=== PATIENT | female | born 1945 | race Caucasian/White ===

== ENCOUNTER → 2016-11-03 | Outpatient (CLI) | payer OTHER, MEDICARE ==
[~2016-11-03] VITALS: Ht 167.6 cm; Wt 76.4 kg
[2016-11-03 15:46] VITALS: BP 130/74; PULSE 78; Ht 167.6 cm; Wt 76.4 kg
== END | disposition home or self-care (01) ==
LOC: C.NEUR 14:02
PROVIDERS: ATTEND Physician Assistant
DX: G47.33 Obstructive sleep apnea (adult) (pediatric) (principal)

== ENCOUNTER → 2017-02-11 | Outpatient (CLI) | payer OTHER, MEDICARE ==
--- NOTE | 2017-02-12 05:37 | PAP/PSG TECHNICIAN REPORT ---
[facility] Wringer Machine Operator Polysomnogram Report Study name: None Report date: 02/12/2017 Study date: 02/11/2017 Referring Physician: Miriam June PA-C, PA-C Name: BOBBY SAMSON Interpreting Physician: Patricio Levi M.D. Date of : 1945 Wringer Machine Operator: ELIUD Alvarez. Sex: Female Age: 71 StudyType: PSG Weight: 168.5 lbs Height: 71 years, Height 5' 6" Neck Circum:14.75inches BMI: 27.19 Medications: Acsensia Breeze, ASA 81mg, CoQ10 50mg, Crestor 20mg, Advil 200mg, Levothyroxine 75mg, Lisinopril 5mg, Metformin HCl 500mg, Multi Vitamin, Venlafaxine HCl 75mg, V-R Vitamin C500mg Patient History Study started on room air with 4cwp cpap in room #7. 71yr old female here tonight for a titration study. She has been using cpap for about 12 years and has been having increased nocturnal awakenings. She was diagnosed with severe PATTIE when living in [place]. She thinks that she is on a setting of 7cwp. Her neck circ=14.75inches She did have to be moved to a different room after getting into bed because of amplifier problems in room #6([facility] was called). She was moved to room #7 and was very gracious about the whole ordeal. Parameters Monitored NPSG: E1-M2, E2-M1, Fp1-M2, Fp2-M1, F3-M2, F4-M2, F4-M1, C3-M2, C4-M2, C4-M1, O1-M2, O2-M2, O2-M1, T3-M2, T4-M1, P3-M2, P4-M1, CHIN1, CHIN2, HR, EKG, Legs, PFLOW, SNOR, FLOW, CFLOW, Tidal Volume, THOR, ABDO, SpO2, PLTH, CPRESS, ETCO2 Wave, ETCO2, pH Sleep Architecture Sleep Stages Time at Lights Off 10:48:12 PM STAGES Time (min.) TST (%) Time at Lights On 5:31:12 AM Wake 70.5 -- Total Recording Time (TRT) 403.00 min. N1 36.5 11 Total Sleep Period (TSP) 400.0 min. N2 242.0 73 Total Sleep Time (TST) 332.5min. N3 21.0 6 Awake Time 70.5 min. REM 33.0 10 Wake after Sleep Onset 67.5 min. Sleep Efficiency (SE) 83 % Sleep Onset Latency (CAROLINE) 3.0 min. Number of Stage 1 Shifts None Awakenings 21 Stage Changes 124 Number of REM periods 1 REM 33.0 10 REM Latency 228.0 min. NREM 299.5 90 Body Position Analysis Supine Right Left Side Prone Vertical Total Sleep Time (min.) 368.5 18.3 0.0 18.29 0.0 0.0 Total Sleep Time (%) 94% 6% 0% 6 0% N/A% Total Sleep Time REM (min.) 33.0 0.0 0.0 None 0.0 0.0 Total Sleep Time NREM (min.) 281.2 18.3 0.0 None 0.0 0.0 Intermittent Wake (min.) 54.2 16.0 0.0 None 0.0 0.0 Total Sleep Period (%) 91% None None None None None Arousals Myoclonus (PLM) * Events Count Index Events Count Index Spontaneous 13 2 Events Awake (PLMW) 68 57.9 Respiratory 2 0.4 Events Asleep w/ Arousal (PLMA) 66 11.9 PLM 64 12 Events Asleep w/o Arousal (PLMS) 267 48.2 Snoring 3 1 Total Asleep 333 60.1 Total 82 15 Total 401 60 Respiratory Analysis * CA OA MA CH H RERA Total Count 0 0 0 0 4 0 4 Index 0.0 0.0 0.0 0 0.7 0 0.7 Mean Duration 0.0 0.0 0.0 0.00 24.7 0.0 24.7 Longest Duration 0.0 0.0 0.0 0.00 0.0 0.0 29.2 Respiratory Event Summary Total Supine ~Supine Right Left Prone REM NREM Apneas Count 0 0 0 0 N/A N/A 0 0 Index 0.0 0 0 0.0 N/A N/A 0 0 Hypopneas (4% Desat) Count 4 4 0 0 N/A N/A 2 2 Index 0.7 0.8 0 0.0 N/A N/A 3.6 0.4 Apneas & All Hypopneas Count 4 4 0 0 N/A N/A 2 2 Index 0.7 1 0 0 N/A N/A 3.6 0.4 Respiratory Events (Cell Coverer+All Hyp+RERA) Count 4 4 0 0 N/A N/A 2 2 Index 0.7 1 0 0.0 N/A N/A 3.6 0.4 Respiratory Related Arousal Count 2 4 0 0 N/A N/A 0 2 Index 0.4 0 0 0 N/A N/A 0 0 Snoring Analysis Supine Right Left Prone REM NREM Total Snore duration 4.0 min Snores count 140 17 N/A N/A 4 153 157 Snore mean duration 1.5 Sec Snores index 27 56 N/A N/A 7.3 30.7 28.3 TST with snoring (%) 1.2% Desaturation Event Summary: Minimum %SpO2 Event Count Mean/Min/Max Duration(sec.) Desaturation Index % Time In Bed > 90 9 23.4 / 10.5 / 43.0 1.5 92.2 86 - 90 1 20.3 / 20.3 / 20.3 1.9 7.8 81 - 85 0 N/A 0.0 0.0 76 - 80 0 N/A 0.0 0.0 71 - 75 0 N/A 0.0 0.0 66 - 70 0 N/A 0.0 0.0 61 - 65 0 N/A 0.0 0.0 56 - 60 0 N/A 0.0 0.0 51 - 55 0 N/A 0.0 0.0 < 50 0 N/A 0.0 0.0 Total REM NREM Awake <50% 0.0 min. 0.0 min. 0.0 min. 0.0 min. 51 - 60% 0.0 min. 0.0 min. 0.0 min. 0.0 min. 61 - 70% 0.0 min. 0.0 min. 0.0 min. 0.0 min. 71 - 80% 0.0 min. 0.0 min. 0.0 min. 0.0 min. 81 - 90% 31.5 min. 0.0 min. 25.6 min. 5.9 min. 91 - 100% 371.3 min. 33.0 min. 273.9 min. 64.3 min. Average 92 94 92 92 Minimum SpO2 87 91 87 90 Desaturation Event Index 1.5 3.6 1.0 2.6 # Desat. Events below 89% 1 N/A 1 N/A Time(%) with Saturation below 89% 0.1 0.0 0.1 0.0 Time(min.) with Saturation below 89% 0.3 0.0 0.3 0.0 Time (mins) REM (mins) NREM (mins) % of TST SpO2 Below 90% 5 N/A N5 0.4 SpO2 Below 88% 0 0 0 0 Heart Rate Analysis Min (bpm) Max (bpm) Average (bpm) Awake 58 94 68 NREM 57 81 64 REM 59 70 63 Overall 57 81 64 Supplemental O2 Values Minimum O2 level: None Value Start Time End Time Wringer Machine Operator Comments Mrs. Samson slept in the right and supine positions. No cardiac arrhythmia noted. PLM's were noted. No bruxism noted. CPAP was initiated at +4 CMH2O and up-titrated to an optimal level of +6 CMH2O, which nearly eliminated all respiratory events and snoring. She brought her own nasal pillow system to use during titration. She did not use the restroom during the night. She stated that she slept about the sane as usual. The final report will be interpreted and signed by a sleep physician. The completed physician report will then be placed in the patient medical record. Therapy Event: Therapy (cm H20) 4 6 Total Time at Pressure (min.) 135.8 267.2 TST at Pressure (min.) 91.3 241.2 # Periods 1 1 Sleep Onset (min.) 3.0 0.0 REM Onset (min.) N/A 95.2 Sleep Efficiency % 67 90 Wakefulness (%) 32.8 9.7 Wakefulness (min.) 44.5 26.0 NREM 1 (%) 12.5 7.3 NREM 1 (min.) 17.0 19.5 NREM 2 (%) 47.7 66.3 NREM 2 (min.) 64.8 177.2 NREM 3 (%) 7.0 4.3 NREM 3 (min.) 9.5 11.5 REM (%) 0.0 12.4 REM (min.) 0.0 33.0 # Arousals 37 45 Arousal Index 24.3 11.2 # Snore 86 71 Snore Index 56.5 17.7 AHI 1.3 0.5 AHI Supine 1.5 0.5 AHI Non-Supine 0.0 0.0 NREM AHI 1.3 0.0 REM AHI N/A 3.6 RDI 1.3 0.5 # Obstructive 0 0 # Central Ap 0 0 # Mixed 0 0 # Hypopneas 2 2 RERAS 0 0 Total Respiratory Events 2 2 Time Below SpO2 89.00% (min.) 0.3 0.0 Mean NREM SpO2 (%) 91 93 Mean REM SpO2 (%) N/A 94 Mean Sleep SpO2 (%) 91 93 Min NREM SpO2 (%) 87 90 Min REM SpO2 (%) N/A 91 Position Supine (min.) 77.8 236.4 Position Non-supine (min.) 13.5 4.8 LM Index Sleep 72.9 55.2 LM Index NREM 72.9 62.3 LM Index REM N/A 10.9 Mean Heart Rate (bpm) 67 63 Min Heart Rate (bpm) 62 57
--- NOTE | 2017-02-14 10:45 | Sleep Study ---
Sleep Study Report Date of Service: February 11, 2017 Sleep Study Report Clinical data: The patient is a 71-year-old female with a BMI of 27.2 who was diagnosed with severe sleep apnea in [place] over 12 years ago. She has been using CPAP. She believes that her current pressure setting is 7 centimeters water pressure. She has been having increased nocturnal awakenings and fatigue. Her diagnostic sleep study showed an AHI of 72. Sleep architecture: Total sleep period was 400 minutes. Total sleep time was 332.5 minutes divided between 299.5 minutes of non-REM sleep and 33 minutes of REM sleep. Sleep onset latency was 3 minutes. REM latency was delayed at 228 minutes. Sleep efficiency was 83 percent. Wake after sleep onset was 67.5 minutes. Sleep consisted of stage N1 11 percent, stage N2 73 percent, stage N3 6 percent, and REM 10 percent. Arousal data: 82 arousals were recorded for an index of 15 per hour. Sixty- four were due to PLMS events. PLM data: 333 limb movements during sleep were noted for an index of 60.1 per hour with an arousal index of 12 per hour. Respiratory data: The AHI was 0.7. There were 4 hypopneas with a mean duration of 24.7 seconds. Oximetry data: No significant nocturnal hypoxemia was seen. Oxygen marva was 87 percent during non-REM sleep. Mean saturation was 92 percent. EKG: Heart rates ranged from 57 to 81 beats per minute. No arrhythmias were noted. Treatment summary: The patient slept in the right and supine positions. She used her own nasal pillows. She was titrated up to 6 centimeters water pressure. At her final pressure setting, the patient slept for 241.2 minutes with an AHI of 0.5. She continued to have significant PLMS throughout the night with arousal in spite of correction of her sleep apnea. Impression: Severe obstructive sleep apnea corrected with CPAP 6 centimeters water pressure utilizing nasal pillows. The patient has continued fragmented sleep and arousals may be due to her PLMD possibly secondary to use of venlafaxine. Recommendation: The patient should be evaluated for possible causes of PLMD. Treatment of PLMD may be needed. CPAP should be adjusted to 6 centimeters water pressure. Copies To 1: Kevin Oseguera MD; Miriam June PA-C
== END | disposition home or self-care (01) ==
LOC: C.NEUR 20:00
PROVIDERS: ATTEND Physician Assistant
DX: G47.33 Obstructive sleep apnea (adult) (pediatric) (principal)

== ENCOUNTER → 2017-03-09 | Outpatient (CLI) | payer OTHER, MEDICARE ==
[~2017-03-09] VITALS: Ht 167.6 cm; Wt 75.3 kg
[2017-03-09 14:10] VITALS: BP 153/70; PULSE 79; Ht 167.6 cm; Wt 75.3 kg
== END | disposition home or self-care (01) ==
LOC: C.NEUR 13:56
PROVIDERS: ATTEND Physician Assistant
DX: G47.33 Obstructive sleep apnea (adult) (pediatric) (principal); G47.61 Periodic limb movement disorder

== ENCOUNTER → 2017-09-06 | Outpatient (CLI) | payer OTHER, MEDICARE ==
[~2017-09-06] VITALS: Ht 167.6 cm; Wt 75.1 kg
[2017-09-06 15:51] VITALS: BP 146/73; PULSE 76; Ht 167.6 cm; Wt 75.1 kg
== END | disposition home or self-care (01) ==
LOC: C.NEUR 14:30
PROVIDERS: ATTEND Physician Assistant
DX: G47.61 Periodic limb movement disorder (principal); G47.33 Obstructive sleep apnea (adult) (pediatric)

== ENCOUNTER → 2017-09-27 | Outpatient (CLI) | payer OTHER, MEDICARE ==
--- NOTE | 2017-09-27 14:55 | DIAGNOSTIC IMAGING REPORT ---
THYROID ULTRASOUND HISTORY: HX OF THYROID NODULE, right-sided NECK PAIN COMPARISON: None. FINDINGS: Right lobe: 2.4 x 0.8 x 0.7 cm. No nodules. Left lobe: 5.7 x 1.9 x 1.7 cm. No nodules. Isthmus: The majority of the isthmus appears absent likely on a surgical basis. No nodules. IMPRESSION: 1. The majority of these masses absent. Only a small portion of the right lobe persists. This suggests postoperative changes. 2. Normal left thyroid lobe. 3. No thyroid nodules identified. Electronically signed by: Navneet Araujo M.D. 09/27/2017 2:54 PM Dictated Date/Time: 09/27/2017 2:51 PM
== END | disposition home or self-care (01) ==
LOC: C.ULTR 13:56
PROVIDERS: ATTEND Family Medicine
DX: M54.2 Cervicalgia (principal); Z86.39 Personal history of other endocrine, nutritional and metabolic disease

== ENCOUNTER → 2017-11-26 | Outpatient (CLI) | payer OTHER, MEDICARE ==
--- NOTE | 2017-11-27 07:39 | MAMMOGRAPHY REPORT ---
BILATERAL DIGITAL SCREENING MAMMOGRAM TOMOSYNTHESIS WITH CAD: 11/26/2017 CLINICAL HISTORY: Routine screening. TECHNIQUE: Breast tomosynthesis in addition to standard 2D mammography was performed. Current study was also evaluated with a Computer Aided Detection (CAD) system. COMPARISON: No prior exams were available for comparison. BREAST COMPOSITION: There are scattered areas of fibroglandular density in both breasts. FINDINGS: No suspicious mass, architectural distortion or cluster of microcalcifications is seen. IMPRESSION: ACR BI-RADS CATEGORY 1: NEGATIVE There is no mammographic evidence of malignancy. Prior outside mammograms are currently being reques [email or web address] and if obtained they will be reviewed, compared to the current exam to assess for any more subtle changes, and an addendum will be made to this report. Otherwise, a 1 year screening mammogram is re commended. The patient will receive written notification of the results. Approximately 10% of breast cancers are not detected with mammography. A negative mammographic report should not delay biopsy if a clinically suggestive mass is present. Shweta Mora M.D. ay/:11/26/2017 17:12:40 Leave Coordinator: Juan TRACEY(Nicole)([place]), [facility] letter sent: Normal 1/2 BI-RADS Code: ACR BI-RADS Category 1: Negative
== END | disposition home or self-care (01) ==
LOC: C.MAMM 13:57
PROVIDERS: ATTEND Family Medicine
DX: Z12.31 Encounter for screening mammogram for malignant neoplasm of breast (principal); Z78.0 Asymptomatic menopausal state

== ENCOUNTER → 2018-03-01 | Outpatient (CLI) | payer OTHER, MEDICARE ==
[~2018-03-01] VITALS: Ht 167.6 cm; Wt 73.5 kg
[2018-03-01 13:54] VITALS: BP 116/66; PULSE 90; Ht 167.6 cm; Wt 73.5 kg
== END | disposition home or self-care (01) ==
LOC: C.NEUR 13:32
PROVIDERS: ATTEND Internal Medicine Pulmonary Disease
DX: G47.33 Obstructive sleep apnea (adult) (pediatric) (principal); G47.61 Periodic limb movement disorder; E11.9 Type 2 diabetes mellitus without complications; E78.5 Hyperlipidemia, unspecified; I10 Essential (primary) hypertension; E03.9 Hypothyroidism, unspecified; Z79.82 Long term (current) use of aspirin